=== PATIENT | female | born 1980 | race Caucasian/White ===

== ENCOUNTER → 2025-01-11 06:45 | Outpatient (REF) | payer BC, MEDICARE, SELFPAY | LOC: HWRAD 06:45 | PROVIDERS: ATTENDING PHYSICIAN Nurse Practitioner Adult Health | DX: R10.10 Upper abdominal pain, unspecified (principal); S09.92XA Unspecified injury of nose, initial encounter | CPT/HCPCS: 70160; 76700 ==

== ENCOUNTER → 2025-02-12 07:29 | Outpatient (REF) | payer MEDICARE, BC, SELFPAY | LOC: RAD 07:29 | PROVIDERS: ATTENDING PHYSICIAN Nurse Practitioner Adult Health; REFERRING PHYSICIAN Internal Medicine | DX: E11.65 Type 2 diabetes mellitus with hyperglycemia (principal); R11.10 Vomiting, unspecified | CPT/HCPCS: 78264; A9541 ==